=== PATIENT | female | born 1975 | race African-American/Black ===

== ENCOUNTER 2022-12-29 17:15 | Emergency (ER) | payer MEDICAID, OTHER ==
[~2022-12-29] VITALS: Ht 165.1 cm; Wt 79.0 kg
[2022-12-29 17:46] VITALS: BP 129/84
[2022-12-29] MEDS ORDERED: P50 MT (20:24)
[2022-12-29] MEDS ORDERED: ALBU6.7H3 INH (20:24)
== END 2022-12-29 20:39 | disposition home or self-care (01) ==
LOC: ER 17:15
DX: J40 Bronchitis, not specified as acute or chronic (principal); E78.00 Pure hypercholesterolemia, unspecified
CPT/HCPCS: 99281